=== PATIENT | female | born 1960 | race Caucasian/White ===

== ENCOUNTER → 2021-12-14 | Day surgery (SDC) | payer OTHER ==
[~2021-12-14] VITALS: Ht 167.6 cm; Wt 65.9 kg
[~2021-12-14] MED LIST: FLUT1BLS3 IH; HYDROmorphone 2 MG/ML INJ. IVP PRN; IV RINGERS,LACTATED 1000ML 1,000 ML IV SCH; LIDOCAINE 2% PF 5 ML VIAL. ONE; MORPHINE SULFATE 2 MG/ML INJ. IVP PRN; PROCHLORPERAZINE 10 MG/2 ML VIAL. IVP PRN; PROPOFOL 10 MG/ML (20ML) VIAL. IV ONE; fentaNYL PF VIAL 100 MCG/2 ML VIAL IVP PRN
[2021-12-14 10:30] VITALS: BP 124/70
[2021-12-14 11:45] VITALS: BP 121/58
--- NOTE | 2021-12-15 16:10 | PATHOLOGY ---
[facility] Accession Number: [id number] . 01 Material submitted: . PART A: sigmoid colon - SIGMOID POLYP PART B: rectum - RECTAL POLYPS . 02 Diagnosis: A. Colonic mucosa, sigmoid polyp: - Hyperplastic polyp. . B. Colorectal mucosa, rectal polyps: - Hyperplastic polyps (3). . (JPM:mm; 12/15/2021) [facility] 12/15/2021 1005 Local . 02 Comment: There are no adenomatous changes or evidence of malignancy. . (JPM:mml; 12/15/2021) . 02 Electronically signed: . Socrates Ma MD, Pathologist NPI- [id number] . 01 Gross description: . A. The specimen is received in formalin, labeled "Millbern, Evelyn, sigmoid polyp". Received are 2 segments of pale taylor tissue measuring 0.3 and 0.4 cm in maximum dimensions. The specimen is entirely submitted in cassette A1. . B. The specimen is received in formalin, labeled "Millbern, Evelyn, rectal polyps". Received are 3 segments of pale taylor tissue ranging in size from 0.2-0.3 cm in maximum dimensions. The specimen is entirely submitted in cassette B1. ([facility] [place]; 12/14/2021) NRI/NRI 12/14/20211953 Local . 02 Pathologist provided ICD-10: K63.5, K62.1 . 02 CPT . 794689, [id number] Specimen Comment: A courtesy copy of this report has been sent to [phone] Specimen Comment: Report sent to Specimen Comment: A duplicate report has been generated due to demographic updates. Performed at: 01 [facility] [address], [place], [place] [id number] MD Taz Paulson MD Phone: [phone] Performed at: [address] [id number] MD Socrates Ma MD Phone: [phone]
== END | disposition home or self-care (01) ==
LOC: SURG 09:53
PROVIDERS: ATTEND Internal Medicine Gastroenterology
DX: Z12.11 Encounter for screening for malignant neoplasm of colon (principal); K64.0 First degree hemorrhoids; K63.5 Polyp of colon; K62.1 Rectal polyp; K63.89 Other specified diseases of intestine; J44.9 Chronic obstructive pulmonary disease, unspecified; Z87.891 Personal history of nicotine dependence; Z79.899 Other long term (current) drug therapy; Z98.890 Other specified postprocedural states; Z72.89 Other problems related to lifestyle
CPT/HCPCS: 45380; 88305; J2704